=== PATIENT | male | born 2000 | race Hispanic/Latino ===

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

== ENCOUNTER 2024-09-21 20:38 | Emergency (ER) | payer SELFPAY ==
[~2024-09-21] VITALS: Ht 177.8 cm; Wt 127.0 kg
[2024-09-21 21:08] VITALS: PULSE 114; RESP 18; TEMP 98.1
[2024-09-21] MEDS: HYDROCODONE/APAP 5MG-325MG TAB PO ONE (22:15)
[2024-09-21] MEDS ORDERED: IBUPROFEN800 MG PO (23:29)
[2024-09-21 23:36] VITALS: BP 145/83; PULSE 96; RESP 18; TEMP 98.1; O2SAT 96
== END 2024-09-21 23:36 | disposition home or self-care (01) ==
LOC: FSED 21:17
DX: S09.90XA Unspecified injury of head, initial encounter (principal); R07.89 Other chest pain; M54.2 Cervicalgia; M79.602 Pain in left arm; M79.642 Pain in left hand; V43.52XA Car driver injured in collision with other type car in traffic accident, initial encounter; Y92.488 Other paved roadways as the place of occurrence of the external cause; K76.0 Fatty (change of) liver, not elsewhere classified; K21.9 Gastro-esophageal reflux disease without esophagitis
CPT/HCPCS: 70450; 71250; 72125; 99283